=== PATIENT | female | born 1990 ===

== ENCOUNTER 2017-07-29 15:12 | Emergency (ER) | payer MEDICAID ==
[2017-07-29 10:05] VITALS: BMI 22.4
[2017-07-29 21:47] VITALS: BP 105/59; PULSE 90; RESP 17; TEMP 98.6; O2SAT 100
--- NOTE | 2017-07-30 08:36 | OBHP ---
Datetime: 07/29/2017 16:39 IP Adm Impression: , intrauterine IP Admit Plan: Observation/Evaluation; Discharge home Admit Comment, IP Provider: 27 y/o female with IUP 21.4 wks transferred from [facility], presented to ED with complaints ofr RLQ pain that started this morning. States she woke up and sta rted feeling pain in her abdomen that she describes as 5/10 in intensity, sharp, radiating along ingu inal line, and exacerbated with movement. Denies n/v/d, dysuria, fever, vb, or lof. Reports + FM PNC: No care. Has had only one visit for diagnosis of but never followed due to change in location and insurance. OBHx: 2 prior C sections- 2014: single , FT, no complications. 2016- twin , FT, no compl ications. No abortions PMHx: denies Medications: PNV Allergies: KNDA Social: Denies habits x3 VSS, afebrile Physical Exam: General: Pt seen lyign in bed comfortbale, NAD Cardiac: RRR, no murmurs Resp: CTABL Abdomen: Soft, mild tenderness to palpation in RLQ, no CVA tenderness, normal bowel sounds, no gau rding or rigidity Bimanual: cervic long and closed FHR: 140, reactive [place]: uterine irritability Labs: CBC, CMP, U/A wnl OB Ultrasound: Single viable IUP, FHR 140, Placenta Posterior Assessment: IUP 21.4 wks with abdominal pain. Likely round ligament pain. Plan: Discharge home. Strongly advised pt to seek proper care. Contact information to cli [facility] given. ER precautions provided. Discussed case with Dr. Manuel Gómez, PGY1 EGA AdmitDate IP: 21.4 Vital Signs Provider: Reviewed; Within Normal Limits IP Chief Complaint: Other Dilatation, Provider: 0 Effacement, Provider: 0 Station, Provider: -4
== END 2017-07-29 16:35 | disposition home or self-care (01) ==
LOC: H.EROB2 15:12
DX: O26.92 Pregnancy related conditions, unspecified, second trimester (principal); R10.2 Pelvic and perineal pain; Z3A.21 21 weeks gestation of pregnancy